=== PATIENT | male | born 1995 | race Caucasian/White ===

== ENCOUNTER 2017-02-07 09:14 | Observation (INO) | payer MEDICAID ==
[~2017-02-07] VITALS: Ht 170.2 cm; Wt 72.6 kg
[2017-02-07] MEDS ORDERED: NS IV 1000 ML 1,000 ML IV ONE (09:40)
[2017-02-07 10:26] LABS: BASOPHILS % (AUTO) 0 % (0-10); EOSINOPHILS % (AUTO) 0 % (0-10); LYMPHOCYTES # (AUTO) 0.9 X 10^3 (1.0-4.0); LYMPHOCYTES % (AUTO) 8 % (12-44); MEAN CORPUSCULAR HEMOGLOBIN 20 PG (25-34); MEAN CORPUSCULAR HGB CONC 28 G/DL (32-36); MEAN CORPUSCULAR VOLUME 72 FL (80-99); MEAN PLATELET VOLUME 9.1 FL (7.4-10.4); MONOCYTES # (AUTO) 0.7 X 10^3 (0.0-1.0); MONOCYTES % (AUTO) 6 % (0-12); NEUTROPHILS # (AUTO) 10.1 X 10^3 (1.8-7.8); NEUTROPHILS % (AUTO) 87 % (42-75); PLATELET COUNT 233 10^3/uL (130-400); RED BLOOD COUNT 4.82 10^6/uL (4.35-5.85); RED CELL DISTRIBUTION WIDTH 19.1 % (10.0-14.5); WHITE BLOOD COUNT 11.6 10^3/uL (4.3-11.0)
--- NOTE | 2017-02-07 10:28 | ED Abdominal Pain ---
General Chief Complaint: Abdominal/GI Problems Stated Complaint: ABD PAIN//UNABLE TO URINATE//NAUSEA Nursing Triage Note: TO ROOM 06 WITH COMPLAINTS OF UMBILICAL PAIN STARTING TODAY. PT HAS TOLD FAMILY HE HAS HAD SOME TROUBLE PEEING. Sepsis Screen: No Definite Risk Source of Information: Patient Exam Limitations: Physical Impairments (TRACY PEREZ MD) History of Present Illness Time Seen By Provider: 10:18 Initial Comments Here with lower abdominal pain and no urination since yesterday. Apparently having trouble with urination. This happens occasionally. Patient has history of previous brain lesions and has had surgery for this. His underlying mental health disorder secondary to this. Patient appears to be uncomfortable and reports that his abdomen is hurting between the bellybutton and suprapubic area. No reported fevers or vomiting. Aunt reports that he has been drinking plenty of fluids but not eating well. Timing/Duration: 12-24 Hours Severity/Quality: Moderate Location: Periumbilical, Suprapubic Radiation: No Radiation Associated Symptoms: No Fever/Chills, No Nausea/Vomiting, No Shortness of Air, No Weakness (TRACY PEREZ MD) Allergies and Home Medications Allergies Coded Allergies: amoxicillin (Verified Allergy, Mild, AUGMENTIN = VOMITING, 10/31/05) aspirin (Verified Allergy, Mild, 10/31/05) chlorpheniramine (Unverified Allergy, Mild, 10/31/05) clavulanic acid (Verified Allergy, Mild, 10/31/05) pseudoephedrine (Unverified Allergy, Mild, 10/31/05) Uncoded Allergies: PAPER TAPE (Allergy, Mild, 10/31/05) Review of Systems Constitutional: see HPI, No chills, No fever EENTM: No Symptoms Reported Respiratory: No Symptoms Reported Cardiovascular: No Symptoms Reported Gastrointestinal: See HPI, Abdominal Pain, Denies Constipated, Denies Diarrhea Genitourinary: See HPI, Pain, Other (decreased urine output) Musculoskeletal: no symptoms reported Other Comments Review of systems Limited due to patient's underlying condition with brain disorder (TRCAY PEREZ MD) Past Ihkyjdh-Cxfymm-Cdtgam Hx Patient Social History Alcohol Use: Denies Use Recreational Drug Use: No Smoking Status: Never a Smoker Recent Foreign Travel: No Contact w/Someone Who Travel: No Recent Infectious Disease Expo: No (TRACY PEREZ MD) Surgeries HX Surgeries: Yes (brain surgery) Surgeries: Tonsillectomy (TRACY PEREZ MD) Respiratory Hx Respiratory Disorders: No (TRACY PEREZ MD) Cardiovascular Hx Cardiac Disorders: No (TRACY PEREZ MD) Neurological Neurological Disorders: Brain Tumor, Seizure Disorder (TRACY PEREZ MD) Endocrine Hx Endocrine Disorders: Yes Endocrine Disorders: Diabetes, Insulin dep (TRACY PEREZ MD) Psychosocial Hx Psychiatric Problems: Yes Behavioral Health Disorders: Eating Disorder, Sleep Difficulties, Violent Behavior (TRACY PEREZ MD) Reviewed Nursing Assessment Reviewed/Agree w Nursing PMH: Yes (TRACY PEREZ MD) Family Medical History Significant Family History: No Pertinent Family Hx (TRACY PEREZ MD) Physical Exam Vital Signs VS - Last 72 Hours, by Label 02/07/17 09:28 Temp 95.2 Pulse 78 Resp 18 B/P (MAP) 120/83 Pulse Ox 100 (WALTER HAMILTON MD) Vital Signs Capillary Refill : Less Than 3 Seconds (TRACY PEREZ MD) General Appearance: WD/WN, no apparent distress HEENT: PERRL/EOMI, pharynx normal Neck: full range of motion, supple Respiratory: lungs clear, normal breath sounds Cardiovascular: regular rate, rhythm, no murmur Gastrointestinal: soft, tenderness (periumbilical and suprapubic) Extremities: non-tender, normal inspection Back: normal inspection, no CVA tenderness, no vertebral tenderness Neurologic/Psychiatric: alert, normal mood/affect (per aunt) Skin: normal color, warm/dry (TRACY PEREZ MD) Progress/Results/Core Measures Results/Orders Lab Results Laboratory Tests Test 02/07/17 10:14 02/07/17 10:19 02/07/17 12:00 Range/Units White Blood Count 11.6 H 4.3-11.0 10^3/uL Red Blood Count 4.82 4.35-5.85 10^6/uL Hemoglobin 9.8 L 13.3-17.7 G/DL Hematocrit 35 L 40-54 % Mean Corpuscular Volume 72 L 80-99 FL Mean Corpuscular Hemoglobin 20 L 25-34 PG Mean Corpuscular Hemoglobin Concent 28 L 32-36 G/DL Red Cell Distribution Width 19.1 H 10.0-14.5 % Platelet Count 233 130-400 10^3/uL Mean Platelet Volume 9.1 7.4-10.4 FL Neutrophils (%) (Auto) 87 H 42-75 % Lymphocytes (%) (Auto) 8 L 12-44 % Monocytes (%) (Auto) 6 0-12 % Eosinophils (%) (Auto) 0 0-10 % Basophils (%) (Auto) 0 0-10 % Neutrophils # (Auto) 10.1 H 1.8-7.8 X 10^3 Lymphocytes # (Auto) 0.9 L 1.0-4.0 X 10^3 Monocytes # (Auto) 0.7 0.0-1.0 X 10^3 Eosinophils # (Auto) 0.0 0.0-0.3 10^3/uL Basophils # (Auto) 0.0 0.0-0.1 10^3/uL Neutrophils % (Manual) 83 % Lymphocytes % (Manual) 6 % Monocytes % (Manual) 9 % Eosinophils % (Manual) 2 % Hypochromasia SLIGHT Anisocytosis MODERATE Microcytosis MODERATE Sodium Level 149 H 135-145 MMOL/L Potassium Level 3.3 L 3.6-5.0 MMOL/L Chloride Level 122 H 98-107 MMOL/L Carbon Dioxide Level 18 L 21-32 MMOL/L Anion Gap 9 5-14 MMOL/L Blood Urea Nitrogen 20 H 7-18 MG/DL Creatinine 1.02 0.60-1.30 MG/DL Estimat Glomerular Filtration Rate > 60 BUN/Creatinine Ratio 20 0-20 Glucose Level 121 H 70-105 MG/DL Calcium Level 9.3 8.5-10.1 MG/DL Total Bilirubin 0.3 0.1-1.0 MG/DL Aspartate Amino Transf (AST/SGOT) 24 5-34 U/L Alanine Aminotransferase (ALT/SGPT) 15 0-55 U/L Alkaline Phosphatase 99 40-136 U/L Total Protein 7.5 6.4-8.2 GM/DL Albumin 4.6 H 3.2-4.5 GM/DL Glucometer 119 H 70-110 MG/DL Urine Color YELLOW Urine Clarity VERY CLOUDY H Urine pH 7 5-9 Urine Specific [place] 1.010 L 1.016-1.022 Urine Protein 1+ H NEGATIVE Urine Glucose (UA) NEGATIVE NEGATIVE Urine Ketones NEGATIVE NEGATIVE Urine Nitrite NEGATIVE NEGATIVE Urine Bilirubin NEGATIVE NEGATIVE Urine Urobilinogen NORMAL NORMAL MG/DL Urine Leukocyte Esterase 1+ H NEGATIVE Urine RBC (Auto) 3+ H NEGATIVE Urine RBC 10-25 H /HPF Urine WBC 5-10 H /HPF Urine Crystals PRESENT H /LPF Urine Amorphous Sediment LARGE NATALIIA PHOSPHATE H /LPF Urine Bacteria FEW H /HPF Urine Casts NONE /LPF Urine Mucus NEGATIVE /LPF Urine Culture Indicated YES (WALTER HAMILTON MD) My Orders Orders - WALTER HAMILTON MD Ns Iv 1000 Ml (Sodium Chloride 0.9%) (02/07/17 13:00) (WALTER HAMILTON MD) Medications Given in ED Current Medications Medications Dose Ordered Sig/Trav Route Start Time Stop Time Status Last Admin Dose Admin Iohexol 100 ml ONCE ONCE IV 02/07/17 11:15 02/07/17 11:30 DC 02/07/17 11:40 100 ML Sodium Chloride 100 ml ONCE ONCE IV 02/07/17 11:15 02/07/17 11:30 DC 02/07/17 11:41 80 ML Sodium Chloride 1,000 ml @ 0 mls/hr Q0M ONCE IV 02/07/17 09:40 02/07/17 09:42 DC 02/07/17 10:16 1,000 MLS/HR (WALTER HAMILTON MD) Vital Signs/I&O Vital Sign - Last 12Hours 02/07/17 09:28 Temp 95.2 Pulse 78 Resp 18 B/P (MAP) 120/83 Pulse Ox 100 (WALTER HAMILTON MD) Blood Pressure Mean: 95 Point of Care Testing Finger Stick Blood Glucose: 119 (TRACY PEREZ MD) Progress Note : Progress Note Seen and evaluated. Bedside bladder scanner shows bladder volume of 50 mL. IV , labs, UA, normal saline 1 L bolus, CT abdomen and pelvis ordered. Monitor patient. 1400: CT results noted. Patient remains very uncomfortable. 2 L normal saline has been given and patient is still not urinated well. Concerns about difficulty with pain control even patient's underlying medical condition. We will admit patient over night for observation and continued IV fluids and pain medicines. Patient did receive 1 g of Rocephin IV and this will continue daily. I did discuss the case with Dr. HAMILTON and he accepts patient for admission, observation status. Family agrees with plan. (TRACY PEREZ MD) Diagnostic Imaging Diagonstic Imaging: CT Plain Films/CT/US/NM/MRI: abdomen, pelvis Comments VIA [facility]. [place], [place] NAME: BRITNEY COX II [facility] REC#: [id number] PT STATUS: REG ER : 1995 PHYSICIAN: TRACY PEREZ MD ADMIT DATE: 02/07/17/ER Draft Date of Exam:02/07/17 CT ABD/PELV W (APPENDICITIS) PROCEDURE: CT abdomen and pelvis with contrast, rule out appendicitis. TECHNIQUE: Multiple contiguous axial images were obtained through the abdomen and pelvis after the administration of intravenous contrast. INDICATION: Abdominal pain, on the right side. FINDINGS: There is swelling of the left kidney with mild hydroureteronephrosis on the left. This appears to relate to an obstructive stone at the UV junction measuring 4 mm in size. There is a nonobstructive stone measuring 3 mm about 2 CM proximal to the UVJ in the distal left ureter. The urinary bladder wall is thickened. This could be from cystitis. The right kidney has normal contrast excretion. No hydronephrosis. The liver, the gallbladder, the spleen, the adrenals and the pancreas appear unremarkable. Please note that the liver dome is not included in this exam however. The abdominal aorta is normal in caliber. No para-aortic significantly enlarged lymph nodes seen. No bowel obstruction. The appendix is normal. The abdomen and pelvis demonstrate no free fluid or fluid collection. No abscess. The osseous structures appear grossly unremarkable. IMPRESSION: 1. Mild left hydroureteronephrosis secondary to an obstructive 4 mm stone at the left UVJ. There is another 3 mm stone seen in the distal left ureter, about 2 cm proximal to the UVJ. 2. The urinary bladder wall is thickened which may relate to cystitis or reactive bladder edema. Dictated on workstation # [id number] Dict: 02/07/17 1203 Trans: 02/07/17 1217 [facility] [id number] Interpreted by: DONALD CRAIN MD Electronically signed by: (TRACY PEREZ MD) Departure Communication Time/Spoke to Admitting Phy: 14:00 (TRACY PEREZ MD) Progress Notes 1235 CT scan report has returned. There are 2 stones in the left ureter with mild hydroureter. The larger stone is at the UV junction (WALTER HAMILTON MD) Impression Impression: Primary Impression: Kidney stones Additional Impression: Urinary tract infection Qualified Codes: N30.01 - Acute cystitis with hematuria Disposition: ADMITTED INPATIENT Condition: Stable Decision to Admit Reason: Admit from ER (General) Decision to Admit/Date: Feb 07, 2017 Time/Decision to Admit Time: 14:00 (TRACY PEREZ MD) Departure-Patient Inst. Referrals: NO,LOCAL PHYSICIAN (PCP/Family) Primary Care Physician TRACY PEREZ MD Feb 07, 2017 10:28 WALTER HAMILTON MD Feb 07, 2017 12:56
[2017-02-07 10:56] LABS: ANISOCYTOSIS MODERATE; EOSINOPHILS % (MANUAL) 2 %; HYPOCHROMASIA SLIGHT; LYMPHOCYTES % (MANUAL) 6 %; MICROCYTOSIS MODERATE; NEUTROPHILS % (MANUAL) 83 %
[2017-02-07 11:07] LABS: ALANINE AMINOTRANSFERASE 15 U/L (0-55); ALBUMIN 4.6 GM/DL (3.2-4.5); ANION GAP 9 MMOL/L (5-14); ASPARTATE AMINO TRANSFERASE 24 U/L (5-34); BILIRUBIN,TOTAL 0.3 MG/DL (0.1-1.0); BLOOD UREA NITROGEN 20 MG/DL (7-18); BUN/CREATININE RATIO 20 (0-20); CALCIUM 9.3 MG/DL (8.5-10.1); CARBON DIOXIDE 18 MMOL/L (21-32); CHLORIDE 122 MMOL/L (98-107); CREATININE SERUM 1.02 MG/DL (0.60-1.30); GFR ESTIMATED > 60; GLUCOSE 121 MG/DL (70-105); HEMOLYSIS 3 (-100-29); ICTERUS 0.4 (-100-1.9); LIPEMIA 9 (-100-49); POTASSIUM 3.3 MMOL/L (3.6-5.0); SODIUM 149 MMOL/L (135-145); TOTAL PROTEIN 7.5 GM/DL (6.4-8.2)
[2017-02-07] MEDS ORDERED: IOHEXOL 350 MG/ML 100 ML (OMNIPAQUE 350) VIAL IV ONE (11:15)
[2017-02-07] MEDS ORDERED: NS 100 ML (IVPB) BAG IV ONE (11:15)
[2017-02-07] MEDS ORDERED: CATHETER FLUSH 10 ML SYR IV PRN (11:15)
[2017-02-07] MEDS ORDERED: KETOROLAC 30 MG/ML VIAL IVP STA (11:32)
[2017-02-07 12:10] LABS: BILIRUBIN,URINE NEGATIVE (NEGATIVE); KETONES,URINE NEGATIVE (NEGATIVE); LEUKOCYTE ESTERASE ,URINE 1+ (NEGATIVE); NITRITE,URINE NEGATIVE (NEGATIVE); PH,URINE 7 (5-9); PROTEIN,URINE 1+ (NEGATIVE); UROBILINOGEN,URINE NORMAL (NORMAL)
--- NOTE | 2017-02-07 12:18 | Diagnostic Imaging Report ---
PROCEDURE: CT abdomen and pelvis with contrast, rule out appendicitis. TECHNIQUE: Multiple contiguous axial images were obtained through the abdomen and pelvis after the administration of intravenous contrast. INDICATION: Abdominal pain, on the right side. FINDINGS: There is swelling of the left kidney with mild hydroureteronephrosis on the left. This appears to relate to an obstructive stone at the UV junction measuring 4 mm in size. There is a nonobstructive stone measuring 3 mm about 2 CM proximal to the UVJ in the distal left ureter. The urinary bladder wall is thickened. This could be from cystitis. The right kidney has normal contrast excretion. No hydronephrosis. The liver, the gallbladder, the spleen, the adrenals and the pancreas appear unremarkable. Please note that the liver dome is not included in this exam however. The abdominal aorta is normal in caliber. No para-aortic significantly enlarged lymph nodes seen. No bowel obstruction. The appendix is normal. The abdomen and pelvis demonstrate no free fluid or fluid collection. No abscess. The osseous structures appear grossly unremarkable. IMPRESSION: 1. Mild left hydroureteronephrosis secondary to an obstructive 4 mm stone at the left UVJ. There is another 3 mm stone seen in the distal left ureter, about 2 cm proximal to the UVJ. 2. The urinary bladder wall is thickened which may relate to cystitis or reactive bladder edema. Dictated by: Dictated on workstation # [id number]
[2017-02-07] MEDS: NS IV 1000 ML 1,000 ML IV SCH ×3 (13:00→17:03)
[2017-02-07] MEDS ORDERED: cefTRIAXone INJECTION 1,000 MG in NS (IVPB) 50 ML IV ONE (14:30)
[2017-02-07] MEDS ORDERED: NPB.9O TP (14:42)
[2017-02-07] MEDS ORDERED: CETI10TA17 PO (14:42)
[2017-02-07] MEDS ORDERED: CLON1TAB27 PO (14:42)
[2017-02-07] MEDS ORDERED: DESM4VIA IJ (14:42)
[2017-02-07] MEDS ORDERED: DESM4VIA INJ (14:42)
[2017-02-07] MEDS ORDERED: CLON2TAB3 PO (14:43)
[2017-02-07] MEDS ORDERED: TOPI50TA13 PO (14:43)
[2017-02-07] MEDS ORDERED: LEVE500T99 PO ×2 (14:43)
[2017-02-07] MEDS ORDERED: POTA8TAB6 PO (14:43)
[2017-02-07] MEDS ORDERED: CHOL5000 PO (14:43)
[2017-02-07] MEDS ORDERED: LEVO88TA54 PO (14:43)
[2017-02-07 16:05] VITALS: BP 120/79
[2017-02-07] MEDS ORDERED: HYDROcodone/APAP 5 MG/325 MG (LORTAB) TAB PO PRN (17:00)
[2017-02-07] MEDS: KETOROLAC 30 MG/ML VIAL IV PRN (18:14)
[2017-02-07 19:25] VITALS: BP 115/77
[2017-02-07] MEDS ORDERED: PATIENT MAY USE OWN MEDS, ALL MC SCH (20:30)
[2017-02-07] MEDS ORDERED: NON-FORMULARY MEDICATION 1 EA EA (Potassium Chloride 8 MEQ) PO SCH (20:30)
[2017-02-07] MEDS ORDERED: NON-FORMULARY MEDICATION 1 EA EA (Clonazepam 2 MG) PO SCH (21:00)
[2017-02-07] MEDS ORDERED: LEVETIRACETAM 500 MG (KEPPRA) TAB PO SCH (21:00)
[2017-02-07] MEDS ORDERED: TOPIRAMATE PO SCH (21:00)
[2017-02-07] MEDS ORDERED: DESMOPRESSIN ACETATE IJ SCH (21:00)
[2017-02-07 23:28] VITALS: BP 106/72
[2017-02-08] MEDS: NS IV 1000 ML 1,000 ML IV SCH ×2 (01:13→08:41)
[2017-02-08 03:52] VITALS: BP 106/72
[2017-02-08 06:59] LABS: BASOPHILS % (AUTO) 0 % (0-10); EOSINOPHILS # (AUTO) 0.1 10^3/uL (0.0-0.3); EOSINOPHILS % (AUTO) 1 % (0-10); LYMPHOCYTES # (AUTO) 1.4 X 10^3 (1.0-4.0); LYMPHOCYTES % (AUTO) 15 % (12-44); MEAN CORPUSCULAR HEMOGLOBIN 21 PG (25-34); MEAN CORPUSCULAR HGB CONC 28 G/DL (32-36); MEAN CORPUSCULAR VOLUME 72 FL (80-99); MEAN PLATELET VOLUME 9.8 FL (7.4-10.4); MONOCYTES # (AUTO) 1.1 X 10^3 (0.0-1.0); MONOCYTES % (AUTO) 12 % (0-12); NEUTROPHILS # (AUTO) 6.8 X 10^3 (1.8-7.8); NEUTROPHILS % (AUTO) 73 % (42-75); PLATELET COUNT 173 10^3/uL (130-400); RED BLOOD COUNT 4.33 10^6/uL (4.35-5.85); WHITE BLOOD COUNT 9.4 10^3/uL (4.3-11.0)
[2017-02-08 07:23] LABS: ALANINE AMINOTRANSFERASE 13 U/L (0-55); ALBUMIN 3.5 GM/DL (3.2-4.5); ANION GAP 7 MMOL/L (5-14); ASPARTATE AMINO TRANSFERASE 30 U/L (5-34); BILIRUBIN,TOTAL 0.2 MG/DL (0.1-1.0); BLOOD UREA NITROGEN 15 MG/DL (7-18); BUN/CREATININE RATIO 13 (0-20); CALCIUM 8.4 MG/DL (8.5-10.1); CARBON DIOXIDE 15 MMOL/L (21-32); CHLORIDE 119 MMOL/L (98-107); CREATININE SERUM 1.16 MG/DL (0.60-1.30); GFR ESTIMATED > 60; GLUCOSE 88 MG/DL (70-105); HEMOLYSIS 22 (-100-29); ICTERUS 0.2 (-100-1.9); LIPEMIA 7 (-100-49); POTASSIUM 3.6 MMOL/L (3.6-5.0); SODIUM 141 MMOL/L (135-145); TOTAL PROTEIN 6.3 GM/DL (6.4-8.2)
[2017-02-08 08:00] VITALS: BP 103/63
[2017-02-08] MEDS: KETOROLAC 30 MG/ML VIAL IV PRN ×2 (08:27→13:46)
[2017-02-08] MEDS ORDERED: LEVETIRACETAM 500 MG (KEPPRA) TAB PO SCH (09:00)
[2017-02-08] MEDS ORDERED: DESMOPRESSIN ACETATE INJ SCH (09:00)
[2017-02-08] MEDS ORDERED: cefTRIAXone INJECTION 1,000 MG in NS (IVPB) 50 ML IV SCH (09:00)
[2017-02-08] MEDS ORDERED: LEVOTHYROXINE 88 MCG (LEVOTHORID) TAB PO SCH (09:00)
[2017-02-08] MEDS ORDERED: LORATADINE (CLARITIN) 10 MG TAB PO SCH (09:29)
[2017-02-08] MEDS ORDERED: VITAMIN D3 5,000 UNITS (CHOLECALCIFEROL ) CAPSULE PO SCH (09:30)
[2017-02-08] MEDS ORDERED: clonazePAM 1 MG (KlonoPIN) TAB PO PRN (09:45)
--- NOTE | 2017-02-08 09:50 | History & Physical-Hospitalist ---
HPI History of Present Illness: HPI/Chief Complaint The patient is a 21-year-old white male who is intellectually impaired. He was in town to visit family from his home in [place]. On the morning of 02/07 he began to complain of abdominal pain. He was unable to pinpoint or describe the pain. Workup showed his white blood count to be slightly elevated. CT scan showed a stone at the UVJ on the left and a smaller stone above that. Mild hydroureter was described. UA showed 10-25 rbc's per high power Field and 5-10 white cells. Source: family Exam Limitations: other (intellect) Date Seen 02/08/17 Time Seen by Provider: 09:46 Attending Physician Armani Hamilton MD PCP No,Local Physician Referring Physician Date of Admission Feb 07, 2017 at 14:35 Home Medications & Allergies Home Medications Reviewed patient Home Medication Reconciliation Form Allergies Allergies Coded Allergies amoxicillin (Verified Allergy, Mild, AUGMENTIN = VOMITING, 10/31/05) aspirin (Verified Allergy, Mild, 10/31/05) chlorpheniramine (Unverified Allergy, Mild, 10/31/05) clavulanic acid (Verified Allergy, Mild, 10/31/05) pseudoephedrine (Unverified Allergy, Mild, 10/31/05) Uncoded Allergies PAPER TAPE ( Allergy, Mild, 10/31/05) Past Mzsnjqg-Gdroxx-Rvudiz Hx Patient Social History Alcohol Use: Denies Use Recreational Drug Use: No Smoking Status: Never a Smoker Physical Abuse Screen: No Sexual Abuse: No Recent Foreign Travel: No Contact w/other who traveled: No Recent Infectious Disease Expo: No Surgeries HX Surgeries: Yes (brain surgery) Surgeries: Tonsillectomy Respiratory Hx Respiratory Disorders: No Cardiovascular Hx Cardiovascular Disorders: No Neurological Neurological Disorders: Brain Tumor, Seizure Disorder Endocrine Hx Endocrine Disorders: Yes Endocrine Disorders: Diabetes, Insulin dep Psychosocial Hx Psychiatric Problems: Yes Behavioral Health Disorders: Eating Disorder, Sleep Difficulties, Violent Behavior Reviewed Nursing Assessment Reviewed/Agree w Nursing PMH: Yes Family Medical History Significant Family History: No Pertinent Family Hx Review of Systems Constitutional: see HPI Psychiatric/Neurological: Other (seizure disorder as stated by family members) Physical Exam Physical Exam Vital Signs Vital Sign - Last 12Hours 02/07/17 02/07/17 09:28 16:20 Temp 95.2 Pulse 78 Resp 18 B/P (MAP) 120/83 Pulse Ox 100 O2 Delivery Room Air Capillary Refill : Less Than 3 Seconds General Appearance: Moderate Distress Eyes: Bilateral Eye Normal Inspection HEENT: Normal ENT Inspection Neck: Normal Inspection Respiratory: Chest Non Tender, Lungs Clear, Normal Breath Sounds, No Accessory Muscle Use, No Respiratory Distress Cardiovascular: Regular Rate, Rhythm, No Edema, No Gallop, No JVD, No Murmur, Normal Peripheral Pulses Gastrointestinal: Normal Bowel Sounds, No Organomegaly, No Pulsatile Mass, Non Tender, Soft Neurologic/Psychiatric: Alert Skin: Normal Color, Warm/Dry Lymphatic: No Adenopathy Results Results/Procedures Lab Laboratory Tests 02/07/17 10:14 02/08/17 06:19 Assessment/Plan Admission Diagnosis 1.intellectual impairment. 2.ureteral lithiasis left-sided with mild hydroureter. 3.history of seizure disorder Clinical Quality Measures DVT/VTE Risk/Contraindication: Risk Factor Score Per Nursin RFS Level Per Nursing on Admit: 1=Low/No VTE PPX ARMANI HAMILTON MD Feb 08, 2017 09:50
--- NOTE | 2017-02-08 12:16 | Progress Note-Hospitalist ---
Standard Progress Note Progress Notes/Assess & Plan Date Seen 02/08/17 Time Seen by Provider: 12:15 Diagnosis 1.intellectual impairment. 2.ureteral lithiasis left-sided with mild hydroureter. 3.history of seizure disorder Assess & Plan/Chief Complaint The family informs me that they would like to return him to [place] and the usual doctors. I related that I was concerned about the possibility of developing sepsis in [place] as he is not apparently passed a stone yet. They live in to [facility] which is [place] of [place] and about a [address] Cabrera has been consulted for urology opinion and they will await him Labs Laboratory Tests 02/07/17 10:14 02/08/17 06:19 WALTER HAMILTON MD Feb 08, 2017 12:16
--- NOTE | 2017-02-08 13:01 | Diagnostic Imaging Report ---
INDICATION: Left ureteral stone. TECHNIQUE: A KUB was obtained at 1303 hours. FINDINGS: There is a continued column of contrast in the left ureter down to the stone at the left UVJ noted on yesterday's CT study. The left UVJ stone has not apparently passed. There appears to be a second stone more distally. The bowel gas pattern is unremarkable. There is a radiopaque density over the right upper quadrant which may be an ingested tablet which was not seen on yesterday's CT study. IMPRESSION: Persistent column of contrast in the left ureter, compatible with a persistent left distal ureteral obstruction due to the patient's known stone. There appears to be a second stone more distally. This also has not changed. Unremarkable bowel gas pattern. Dictated by: Dictated on workstation # [id number]
--- NOTE | 2017-02-08 13:13 | Discharge Instructions ---
Discharge Instructions Patient Instructions Patient Instructions Resume home medications. The patient had a dose of Rocephin this morning which will carry him 24 hours. This is antibiotic. The patient was given a dose of Toradol just prior to discharge to cover his pain needs. A disc copy of the CT scan done 02/07 has been provided for you. Concerns on your trip home would include unrelenting pain, fever or chills. These would require your seeking rather immediate medical attention. Goal/Follow Up Appt: You will require urology services when you reach home. This may be possible to combine his previously delayed urethral stricture procedure and confirmation of stone passage Activity & Diet Discharge Diet: No Restrictions WALTER HAMILTON MD Feb 08, 2017 13:13
[2017-02-08] MEDS ORDERED: ENOXAPARIN 80 MG/0.8 ML (LOVENOX) SYR SC NR (13:39)
[2017-02-08 14:05] VITALS: BP 103/63
[2017-02-08] MEDS ORDERED: clonazePAM 1 MG (KlonoPIN) TAB PO SCH (21:00)
--- NOTE | 2017-02-09 00:50 | CONSULTATION REPORT ---
DATE OF SERVICE: 02/08/2017 SUMMARY: After reviewing the patient's record and interviewing the family, this is a 21-year-old male who has history of seizures, mentally challenged, who was admitted to the hospital, who is found to have a 4-mm stone in the left UVJ and another one 2 mm stone 2 cm above the UV junction. He has been fairly stable with no much pain. His last Toradol shot was yesterday. He does not seem to be in any distress at all. His family wishes to take him back to [place] where they live and his doctors are including his urologist and he is being contacted and waiting for him. IMPRESSION: Left distal urethral stone with mild hydro. RECOMMENDATION: It is okay to let him go with recommended 30 mg of Toradol IV at discharge and he already received his Rocephin which represent for 24 hours and he would be received by his doctors in [place] to final management. It was fully explained to the family and they are agreeable to their wishes. Job ID: [id number] DocumentID: [id number] Dictated Date: 02/08/2017 13:29:13 Research Scholar Date: 02/09/2017 00:25:34 Dictated By: CAMPOS GE MD
[2017-02-09] MEDS ORDERED: KCL 8 MEQ (MICRO K) TABLET PO SCH (07:00)
== END 2017-02-08 13:10 | disposition home or self-care (01) ==
LOC: EDUNIT# 09:14 → ER 09:20 → 4TH 14:35 → UNDOADMOB 14:35 → 4TH 16:20 → UNDODISOB 02-08 14:05
PROVIDERS: ADMIT Internal Medicine; ATTEND Internal Medicine
DX: N13.2 Hydronephrosis with renal and ureteral calculous obstruction (principal); E11.9 Type 2 diabetes mellitus without complications; G40.909 Epilepsy, unspecified, not intractable, without status epilepticus; G31.84 Mild cognitive impairment of uncertain or unknown etiology; Z79.4 Long term (current) use of insulin
CPT/HCPCS: 36415; 74000; 74177; 80053; 81000; 82962; 85007; 85025; 85027; 87088; G0378

== ENCOUNTER 2017-10-10 21:54 | Emergency (ER) | payer MEDICAID ==
[~2017-10-10] VITALS: Ht 170.2 cm; Wt 72.6 kg
[~2017-10-10 21:54] MED LIST: CETI10TA17 PO; CHOL5000 PO; CLON1TAB27 PO; CLON2TAB3 PO; DESM4VIA IJ; DESM4VIA INJ; LEVE500T99 PO; LEVO88TA54 PO; NPB.9O TP; POTA8TAB6 PO; TOPI50TA13 PO
[2017-10-10] MEDS ORDERED: DIAZEPAM (22:07)
[2017-10-10] MEDS ORDERED: LACO150T2 (22:07)
[2017-10-10 22:09] LABS: BASOPHILS % (AUTO) 0 % (0-10); EOSINOPHILS % (AUTO) 1 % (0-10); HEMATOCRIT 40 % (40-54); HEMOGLOBIN 13.2 G/DL (13.3-17.7); LYMPHOCYTES # (AUTO) 1.1 X 10^3 (1.0-4.0); LYMPHOCYTES % (AUTO) 25 % (12-44); MEAN CORPUSCULAR HEMOGLOBIN 25 PG (25-34); MEAN CORPUSCULAR HGB CONC 33 G/DL (32-36); MEAN CORPUSCULAR VOLUME 76 FL (80-99); MEAN PLATELET VOLUME 10.3 FL (7.4-10.4); MONOCYTES # (AUTO) 0.3 X 10^3 (0.0-1.0); MONOCYTES % (AUTO) 7 % (0-12); NEUTROPHILS # (AUTO) 2.9 X 10^3 (1.8-7.8); NEUTROPHILS % (AUTO) 67 % (42-75); PLATELET COUNT 77 10^3/uL (130-400); RED BLOOD COUNT 5.22 10^6/uL (4.35-5.85); RED CELL DISTRIBUTION WIDTH 23.6 % (10.0-14.5); WHITE BLOOD COUNT 4.4 10^3/uL (4.3-11.0)
--- NOTE | 2017-10-10 22:09 | ED Neurological Problem ---
General Chief Complaint: Neurological Problems Stated Complaint: SEIZURE Source: patient, family Exam Limitations: no limitations (DANIELE ASH APRN) History of Present Illness Date Seen by Provider: Oct 10, 2017 Time Seen by Provider: 22:05 Initial Comments To ER per EMS from his aunt's home where he's been staying for the past 2 weeks wt c/o seizure. He is originally from [place]. He is here visiting. 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 He also has a known seizure disorder and he is on Vimpat, Keppra, Topamax. Also has Diabetes Insipidus and hypothyroidism. He also has when necessary Valium rectal gel for the seizure disorder. This evening he had a seizure that was unusual. His aunts both report that he's had seizures "all the time" but they usually minor and short-lived. Tonight was different and his entire body was convulsing and it lasted 30 minutes. They gave 15 mg of Valium rectal gel and EMS was summoned. EMS transported him here. He does require [id number] care and family states he is nonambulatory. He also fell today striking the left side of his face on the concrete prior to seizure activity Timing/Duration: 1 hour Severity: moderate Associated Symptoms: seizures (DANIELE ASH APRN) Allergies and Home Medications Allergies Coded Allergies: amoxicillin (Verified Allergy, Mild, AUGMENTIN = VOMITING, 10/31/05) aspirin (Verified Allergy, Mild, 10/31/05) chlorpheniramine (Unverified Allergy, Mild, 10/31/05) clavulanic acid (Verified Allergy, Mild, 10/31/05) pseudoephedrine (Unverified Allergy, Mild, 10/31/05) Uncoded Allergies: PAPER TAPE (Allergy, Mild, 10/31/05) Home Medications Cetirizine HCl 10 Mg Tablet, 10 MG PO DAILY, (Reported) Clonazepam 1 Mg Tab.rapdis, 1 MG PO DAILY PRN for SEIZURE ACTIVITY, (Reported) TAKE AFTER 5 SMALL SEIZURES IN A CLUSTER OR AFTER 3 BIG SEIZURES; MAY REPEAT IN 1 HOUR IF SEIZURES CONTINUE Clonazepam 2 Mg Tablet, 2 MG PO HS, (Reported) Desmopressin Acetate 4 Mcg/1 Ml Vial, 4 MCG IJ HS, (Reported) Lacosamide 150 Mg Tablet, (Reported) Levetiracetam 500 Mg Tablet, 2,000 MG PO DAILY, (Reported) TAKES 4 (500MG) TABLETS Levetiracetam 500 Mg Tablet, 2,250 MG PO HS, (Reported) TAKES 4 & 1/2 (500MG) TABLETS Levothyroxine Sodium 88 Mcg Tablet, 88 MCG PO DAILY, (Reported) Neomycin/Polymyxin/Bacitracin 0.9 Gm Oint, TP TID PRN for SORES, (Reported) Potassium Chloride 8 Meq Tablet.er, 8 MEQ PO MoTuWeThFr, (Reported) [Diazepam] , (Reported) Constitutional: see HPI Eyes: No Symptoms Reported Ears, Nose, Mouth, Throat: no symptoms reported Respiratory: no symptoms reported Cardiovascular: no symptoms reported Genitourinary: no symptoms reported Musculoskeletal: no symptoms reported Skin: no symptoms reported Psychiatric/Neurological: See HPI, Tonic Clonic Seizures Endocrine: No Symptoms Reported (DANIELE ASH APRN) Past Ivznpqu-Naonxa-Qovcvx Hx Surgeries History of Surgeries: Yes (brain surgery) Surgeries: Tonsillectomy (DANIELE ASH APRN) Respiratory History of Respiratory Disorde: No (DANIELE ASH APRN) Cardiovascular History of Cardiac Disorders: No (DANIELE ASH APRN) Neurological History of Neurological Disord: Yes (HH TUMOR) Neurological Disorders: Brain Tumor, Seizure Disorder (DANIELE ASH APRN) Genitourinary History of Genitourinary Disor: Yes (STENTS PLACED FOR URINARY ISSUES) (DANIELE ASH APRN) Gastrointestinal History of Gastrointestinal Di: Yes (EATING DISORDER ) (DANIELE ASH APRN) Musculoskeletal History of Musculoskeletal Dis: Yes (WEARS KNEE AND ANKLE BRACE) (DANIELE ASH APRN) Endocrine History of Endocrine Disorders: Yes Endocrine Disorders: Diabetes, Insulin dep (DANIELE ASH APRN) HEENT History of HEENT Disorders: No (DANIELE ASH APRN) Cancer History of Cancer: No (DANIELE ASH APRN) Psychosocial History of Psychiatric Problem: Yes (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 ) Behavioral Health Disorders: Eating Disorder, Sleep Difficulties, Violent Behavior (DANEILE ASH APRN) Family Medical History Significant Family History: No Pertinent Family Hx (DANIELE ASH APRN) Physical Exam Vital Signs Vital Signs - First Documented 10/10/17 22:00 Temp 97.8 Pulse 77 Resp 18 B/P (MAP) 98/66 (77) Pulse Ox 98 O2 Delivery Room Air (PILI AMADO) Vital Signs Capillary Refill : (DANIELE ASH APRN) General Appearance: WD/WN, no apparent distress HEENT: PERRL/EOMI, normal ENT inspection, other (abrasions to the forehead and right cheek) Neck: non-tender, full range of motion Respiratory: no respiratory distress, no accessory muscle use, decreased breath sounds (on the right,) Cardiovascular: regular rate, rhythm, no murmur Gastrointestinal: normal bowel sounds Neurologic/Psychiatric: alert, normal mood/affect, oriented x 3 Crainal Nerves: normal hearing, normal speech, PERRL Skin: normal color, warm/dry (DANIELE ASH APRN) Progress/Results/Core Measures Results/Orders Lab Results Laboratory Tests Test 10/10/17 21:55 10/10/17 22:15 10/10/17 22:54 Range/Units White Blood Count 4.4 4.1 L 4.3-11.0 10^3/uL Red Blood Count 5.22 4.59 4.35-5.85 10^6/uL Hemoglobin 13.2 L 11.7 L 13.3-17.7 G/DL Hematocrit 40 35 L 40-54 % Mean Corpuscular Volume 76 L 76 L 80-99 FL Mean Corpuscular Hemoglobin 25 26 25-34 PG Mean Corpuscular Hemoglobin Concent 33 34 32-36 G/DL Red Cell Distribution Width 23.6 H 22.9 H 10.0-14.5 % Platelet Count 77 L 76 L 130-400 10^3/uL Mean Platelet Volume 10.3 10.2 7.4-10.4 FL Neutrophils (%) (Auto) 67 42-75 % Lymphocytes (%) (Auto) 25 12-44 % Monocytes (%) (Auto) 7 0-12 % Eosinophils (%) (Auto) 1 0-10 % Basophils (%) (Auto) 0 0-10 % Neutrophils # (Auto) 2.9 1.8-7.8 X 10^3 Lymphocytes # (Auto) 1.1 1.0-4.0 X 10^3 Monocytes # (Auto) 0.3 0.0-1.0 X 10^3 Eosinophils # (Auto) 0.0 0.0-0.3 10^3/uL Basophils # (Auto) 0.0 0.0-0.1 10^3/uL Sodium Level 140 135-145 MMOL/L Potassium Level 4.0 3.6-5.0 MMOL/L Chloride Level 110 H 98-107 MMOL/L Carbon Dioxide Level 20 L 21-32 MMOL/L Anion Gap 10 5-14 MMOL/L Blood Urea Nitrogen 15 7-18 MG/DL Creatinine 0.79 0.60-1.30 MG/DL Estimat Glomerular Filtration Rate > 60 BUN/Creatinine Ratio 19 Glucose Level 61 L 70-105 MG/DL Calcium Level 9.9 8.5-10.1 MG/DL Total Bilirubin 0.3 0.1-1.0 MG/DL Aspartate Amino Transf (AST/SGOT) 22 5-34 U/L Alanine Aminotransferase (ALT/SGPT) 23 0-55 U/L Alkaline Phosphatase 140 H 40-136 U/L Total Protein 7.2 6.4-8.2 GM/DL Albumin 4.2 3.2-4.5 GM/DL Urine Color YELLOW Urine Clarity CLEAR Urine pH 6.5 5-9 Urine Specific [place] 1.020 1.016-1.022 Urine Protein NEGATIVE NEGATIVE Urine Glucose (UA) NEGATIVE NEGATIVE Urine Ketones NEGATIVE NEGATIVE Urine Nitrite NEGATIVE NEGATIVE Urine Bilirubin NEGATIVE NEGATIVE Urine Urobilinogen 1 NORMAL MG/DL Urine Leukocyte Esterase NEGATIVE NEGATIVE Urine RBC (Auto) NEGATIVE NEGATIVE Urine RBC NONE /HPF Urine WBC RARE /HPF Urine Crystals NONE /LPF Urine Bacteria NEGATIVE /HPF Urine Casts NONE /LPF Urine Mucus LARGE H /LPF Urine Culture Indicated NO (PILI AMADO) Vital Signs/I&O Vital Sign - Last 12Hours 10/10/17 22:00 Temp 97.8 Pulse 77 Resp 18 B/P (MAP) 98/66 (77) Pulse Ox 98 O2 Delivery Room Air (PILI AMADO) Progress Note : Time: 23:09 Progress Note Discussed case lab imaging and findings with Armaan. He's replacing the sugar (61 ) with half normal saline D5 which is probably low secondary to the history of 30 minutes of seizure activity. Platelets being low is a new finding but there is no evidence of bleeding currently. Patient is still postictal but improving. Waiting for CT head read. Patient recently started his Vimpat 3 months ago and that maybe trigger for thrombocytopenia. (PILI AMADO) Diagnostic Imaging Diagonstic Imaging: Xray Plain Films/CT/US/NM/MRI: chest (1v) Comments Poor respiratory effort with an otherwise unremarkable 1 view chest x-ray. Reviewed: Reviewed by Me Diagonstic Imaging: CT Plain Films/CT/US/NM/MRI: head Comments No evidence of acute transcortical cerebral infarct or intracranial hemorrhage. Interval postsurgical changes of the left temporal and left frontal parietal craniotomies. There are some extra-axial mass along the left ambient cistern and suprasellar region suggesting residual or even recurrent tumor as described. Follow-up MRI should be considered. Reviewed: Reviewed [place] Study, Reviewed by Me (PILI AMADO) Transfer of Care Transfer of Care Time: 23:00 Care transferred to: Aneudy (PILI AMADO) Departure Communication (Admissions) Progress Notes 2301- care has been turned over to a most generous Dr. Amado. CT head results and urinalysis pending. Patient is awake with eyes open and is talking on the phone to his mother at this time. Blood pressure 91/65 and mother reports to me that this is fairly normal. Heart rate 75, oxygen saturation 97%. The D5 half- normal saline with 20 mEq of potassium infusing her 50 mL an hour. Discussed with his aunts with whom he is staying that he will likely be discharged to home and they are happy with this plan. However, this will be dependent on his urinalysis and head CT report and Dr. Amado's and (DANIELE ASH APRN) Impression Impression: Primary Impression: Seizures, generalized convulsive Additional Impressions: Postictal state Hamartoma of brain Disposition: 01 HOME, SELF-CARE Condition: Improved Departure-Patient Inst. Decision time for Depature: 23:47 (PILI AMADO) Referrals: NO,LOCAL PHYSICIAN (PCP/Family) Primary Care Physician Patient Instructions: Seizures, Adult (DC) Add. Discharge Instructions: Get some rest tonight. In the next 1-2 weeks follow-up with his primary care physician and discussed the finding of low platelets being 77,000 as well as his seizure and the imaging that was done today that may show recurrent or residual tumor that needs to be compared to more recent imaging. All discharge instructions reviewed with patient and/or family. Voiced understanding. DANIELE ASH APRN Oct 10, 2017 22:09 PILI AMADO Oct 10, 2017 23:14
[2017-10-10] MEDS ORDERED: NS IV 1000 ML 1,000 ML IV SCH (22:15)
[2017-10-10 22:30] LABS: HEMOGLOBIN 11.7 G/DL (13.3-17.7); MEAN PLATELET VOLUME 10.2 FL (7.4-10.4); RED BLOOD COUNT 4.59 10^6/uL (4.35-5.85); RED CELL DISTRIBUTION WIDTH 22.9 % (10.0-14.5); WHITE BLOOD COUNT 4.1 10^3/uL (4.3-11.0)
[2017-10-10 22:45] LABS: ALANINE AMINOTRANSFERASE 23 U/L (0-55); ALBUMIN 4.2 GM/DL (3.2-4.5); ALKALINE PHOSPHATASE 140 U/L (40-136); BILIRUBIN,TOTAL 0.3 MG/DL (0.1-1.0); BUN/CREATININE RATIO 19; CALCIUM 9.9 MG/DL (8.5-10.1); CARBON DIOXIDE 20 MMOL/L (21-32); CHLORIDE 110 MMOL/L (98-107); CREATININE SERUM 0.79 MG/DL (0.60-1.30); GFR ESTIMATED > 60; GLUCOSE 61 MG/DL (70-105); SODIUM 140 MMOL/L (135-145); TOTAL PROTEIN 7.2 GM/DL (6.4-8.2)
[2017-10-10 22:56] LABS: BILIRUBIN,URINE NEGATIVE (NEGATIVE); CLARITY,URINE CLEAR; COLOR,URINE YELLOW; GLUCOSE, URINE (UA) NEGATIVE (NEGATIVE); KETONES,URINE NEGATIVE (NEGATIVE); LEUKOCYTE ESTERASE ,URINE NEGATIVE (NEGATIVE); NITRITE,URINE NEGATIVE (NEGATIVE); PH,URINE 6.5 (5-9); PROTEIN,URINE NEGATIVE (NEGATIVE); UROBILINOGEN,URINE 1 MG/DL (NORMAL)
[2017-10-10] MEDS ORDERED: D5 1/2 NS W/KCL 20 MEQ/L 1,000 ML IV SCH (23:00)
[2017-10-10 23:04] LABS: BACTERIA,URINE NEGATIVE /HPF; WBC,URINE RARE /HPF
[2017-10-10 23:08] VITALS: BP 91/65
[2017-10-10 23:55] VITALS: BP 90/62
--- NOTE | 2017-10-11 05:24 | Diagnostic Imaging Report ---
INDICATION: Fall. Seizure. COMPARISON: 01/23/2007 FINDINGS: Single frontal radiographic view of the chest was obtained and demonstrates mild prominence of cardiac silhouette and pulmonary vasculature. There is also crowding of the central hilar vessels with low inspiratory volumes. There is no focal consolidation, large effusion, nor pneumothorax. Bony structures show no acute abnormalities. IMPRESSION: 1. Cardiac silhouette and pulmonary vasculature appear prominent. This, however, may be artifactual and related to low inspiratory volumes. There is otherwise no evidence of focal infiltrate. Dictated by: Dictated on workstation # [id number]
--- NOTE | 2017-10-11 05:47 | Diagnostic Imaging Report ---
PROCEDURE: CT head without contrast. TECHNIQUE: Multiple contiguous axial images were obtained through the brain without the use of intravenous contrast. INDICATION: Seizure. COMPARISON: 02/07/2017 FINDINGS: Since the previous exam, the patient has had previous osteotomy site on the left overlying the anterior margins of the middle cranial fossa. There is decreased attenuation with encephalomalacia of the underlying anterior left temporal lobe. There is evidence of extra-axial mass identified medial to the left petrous bone and anterior to the omar along the left ambient cistern measuring approximately 2.4 x 1.2 cm. Mass in this area on prior exam measured approximately 2.8 x 2.3 cm. There is no significant mass effect or midline shift. Ventricles and cortical sulci are otherwise normal in size and contour. No other areas of loss of banda-white matter junction differentiation are seen to suggest acute territorial infarct. There is no evidence of intra-or extra-axial intracranial hemorrhage. No extra-axial fluid collections are seen. Remainder of the bony calvarium is intact. Visualized portions of the paranasal sinuses and mastoid air cells are clear. IMPRESSION: 1. Postsurgical changes of the left middle cranial fossa with encephalomalacia of the underlying anterior left temporal lobe. 2. Extra-axial mass along the left ambient cistern and suprasellar region. This is concerning for residual or potential recurrent tumor. Further evaluation with MRI is recommended. 3. No evidence of intracranial hemorrhage. Dictated by: Dictated on workstation # [id number]
== END 2017-10-10 23:55 | disposition home or self-care (01) ==
LOC: EDUNIT# 21:54 → ER 21:55
DX: G40.89 Other seizures (principal); G93.89 Other specified disorders of brain; E11.9 Type 2 diabetes mellitus without complications; Z90.89 Acquired absence of other organs; Z88.1 Allergy status to other antibiotic agents; Z88.6 Allergy status to analgesic agent; Z88.8 Allergy status to other drugs, medicaments and biological substances
CPT/HCPCS: 36415; 70450; 71045; 80053; 81000; 85025; 85027; 93005